=== PATIENT | female | born 1960 | race Caucasian/White ===

== ENCOUNTER → 2017-05-04 | Outpatient (CLI) | payer BC, SELFPAY | PROVIDERS: Visit Provider Family Medicine | DX: E03.9 Hypothyroidism, unspecified (principal); E78.00 Pure hypercholesterolemia, unspecified | CPT/HCPCS: 36415; 80053; 80061; 84436; 84443 ==

== ENCOUNTER → 2017-05-06 | Outpatient (CLI) | payer BC, SELFPAY | PROVIDERS: PCP Family Medicine; Visit Provider Family Medicine | DX: R22.1 Localized swelling, mass and lump, neck (principal); C73 Malignant neoplasm of thyroid gland; R31.9 Hematuria, unspecified; E89.0 Postprocedural hypothyroidism | CPT/HCPCS: 74176; 76536 ==

== ENCOUNTER → 2017-08-12 11:09 | Outpatient (CLI) | payer BC, SELFPAY ==
--- NOTE | 2017-08-12 11:23 | CT_ITS ---
CT abdomen pelvis wo con CLINICAL INDICATION: Hematuria, left flank pain ITS.REASON: ACUTE DIVERTICULITIS ORDERING PHYSICIAN: RAPIT Talavera PATIENT AGE: 56 years COMPARISON: 05/06/2017 TECHNIQUE: Axial images obtained with sagittal and coronal reformats. All CT scans at the facility use one or more dose reduction, viz: automated exposure control; ma/kV adjustment per patient size (including targeted exams where dose is matched to indication; i.e. head); or iterative reconstruction technique. PROCEDURE: Oral Contrast: None IV Contrast: None . FINDINGS: The liver, spleen, adrenal glands, pancreas, gallbladder, and kidneys have an unremarkable unenhanced appearance. No obstructing renal or ureteral calculi. Unremarkable appendix. No intestinal obstruction or free air. There is diverticulosis of the descending and sigmoid colon. No areas of diverticulitis identified.. Prior hysterectomy. No pelvic mass abnormal fluid collection or focal inflammatory change evident. Urinary bladder has an unremarkable appearance Is mild lumbar scoliosis convex left with mild chronic wedging of L2. IMPRESSION: 1. No acute finding. 2. Sigmoid and descending colon diverticulosis. No evidence of diverticulitis 3. No obstructing renal or ureteral calculi
== END ==
PROVIDERS: PCP Physician Assistant; Visit Provider Physician Assistant
DX: K57.92 Diverticulitis of intestine, part unspecified, without perforation or abscess without bleeding (principal)
CPT/HCPCS: 74176

== ENCOUNTER → 2017-08-30 13:51 | Outpatient (POV) | payer BC, SELFPAY | PROVIDERS: Visit Provider Nurse Practitioner Acute Care | DX: Z00.00 Encounter for general adult medical examination without abnormal findings (principal) ==

== ENCOUNTER → 2017-12-23 08:58 | Outpatient (CLI) | payer BC, SELFPAY ==
--- NOTE | 2017-12-23 09:01 | CT_ITS ---
CT lung screening EXAM: CT LUNG LOW DOSE WO CONTRAST HISTORY: 57 year old female with 44 pack-year smoking history, asymptomatic ITS.REASON: H/O NICOTINE DEPENDENCE ORDERING PHYSICIAN: Chris Farley MD PATIENT AGE: 57 years COMPARISON: 10/06/2016 TECHNIQUE: The exam was performed on a GE Light Speed [address] scanner using 2.90 mGy CTDI. A low dose helical CT CHEST was performed on a multi-detector scanner. All CT scans at the facility use one or more dose reduction, viz: automated exposure control, ma/kV adjustment per patient size (including targeted exams where dose is matched to indication, i.e. head), or iterative reconstruction technique. The LDCT was performed in a facility that meets the criteria for the screening program. Data regarding this exam was submitted to ACR which is an approved registry. The order for this exam indicates that it came as a result of a lung cancer screening counseling shard decision-making visit that included all the elements required of such a visit including smoking cessation. The radiologist interpreting this exam meets the CMS criteria for the LDCT lung cancer screening program. The exam is reported using the Lung-RADS classification scale and reported to the ACR registry. NOTE: This study was performed for the specific purposes of lung cancer screening and is not an alternative to diagnostic chest CT. RADIATION DOSE: CTDI vol(CT dose Index-volume) = 2.90mG DLP (Dose Length Product) = 124.28 mGcm FINDINGS: Centrilobular and paraseptal emphysema with scattered fibrotic changes. There are multiple small pulmonary nodules which have developed in both lung bases posteriorly measuring up to 8 mm in both right and left lung bases posteriorly There are some small nodes in the mediastinum measuring up to 1.6 cm in the precarinal region not significantly changed. Small mesenteric nodes are also present. IMPRESSION: 1. Lung RADS Category: 4, suspicious. Numerous small pulmonary nodules have developed in both lung bases posteriorly. This could represent infectious or inflammatory etiology or metastatic disease. This patient have a known primary carcinoma?? 2. Other findings: Centrilobular emphysema and paraseptal emphysema RECOMMENDATIONS: [address] follow-up suggested without and with contrast of the chest. Also suggest correlation with patient's history. Does patient have history of primary?
== END ==
PROVIDERS: Family Provider Family Medicine; PCP Family Medicine; Visit Provider Family Medicine
DX: Z12.2 Encounter for screening for malignant neoplasm of respiratory organs (principal); Z87.891 Personal history of nicotine dependence

== ENCOUNTER → 2018-02-08 10:30 | Outpatient (CLI) | payer BC, SELFPAY ==
--- NOTE | 2018-02-08 10:34 | MM_ITS ---
MM Dig screening mamm BI w/CAD CAD Screening COMPARISON: Analog mammograms 11/22/2009 and digital mammograms with CAD 10/06/2016 INDICATION: There is no personal or family history of breast cancer TECHNIQUE: Standard CC and MLO images were obtained. R2 CAD reviewed. FINDINGS: Moderate somewhat heterogenic fibroglandular densities are seen in the central portions of both breasts. There is a possible belting asymmetric density right breast highlighted by CAD and best seen on the cc projection. Recommend the patient return for spot compression CC view and 90 degree lateral view and ultrasound may be necessary as well. There is a mole marker left breast. There are no suspicious microcalcifications. IMPRESSION: Moderate diffuse breast density with possible developing asymmetric density right breast BI-RADS Category: 0 Need Additional Imaging Evaluation RECOMMENDED FOLLOW-UP: IMM - IMMEDIATE FOLLOW-UP RECOMMENDED (A letter has been sent to the patient regarding results of the study.)
== END ==
PROVIDERS: Family Provider Family Medicine; PCP Family Medicine; Visit Provider Family Medicine
DX: Z12.31 Encounter for screening mammogram for malignant neoplasm of breast (principal)
CPT/HCPCS: 77067

== ENCOUNTER → 2018-03-01 12:52 | Outpatient (CLI) | payer BC, SELFPAY ==
--- NOTE | 2018-03-01 13:00 | MM_ITS ---
MM Dig mamm DX unilat RT CAD, US breast RT complete INDICATION: Follow-up abnormal mammogram ORDERING PHYSICIAN: Chris Farley MD PATIENT AGE: 57 years COMPARISON: 02/08/2018 TECHNIQUE: Problem-solving views and ultrasound of the right breast FINDINGS: There is dense fibroglandular tissue which decreases sensitivity of mammography. There was some residual asymmetric density noted in the superior left breast on the spot compression view. This did appear to somewhat this may on the focal and was not evident on the cc view.. Asymmetry in the medial aspect of the right breast is noted but is unchanged dating back to 10/06/2016 probably related to fibroglandular tissue Right breast ultrasound: No cystic or solid adenopathy is evident. There is echodense fibroglandular tissue noted. Small lymph node is present in the axilla with fatty hilum IMPRESSION: No discrete mass. No malignant mass or malignant appearing microcalcification. Minimal residual asymmetric density in the upper aspect of the right breast and may be related to fibroglandular tissue BI-RADS Category: 3 Probably Benign Finding Short Term Follow-up RECOMMENDED FOLLOW-UP: 6M - 6 MONTH FOLLOW-UP (A letter has been sent to the patient regarding results of the study.)
== END ==
PROVIDERS: Family Provider Family Medicine; PCP Family Medicine; Visit Provider Family Medicine
DX: R92.8 Other abnormal and inconclusive findings on diagnostic imaging of breast (principal)
CPT/HCPCS: 76641; 77065

== ENCOUNTER → 2018-03-31 12:40 | Outpatient (CLI) | payer BC, SELFPAY ==
--- NOTE | 2018-03-31 12:56 | CT_ITS ---
CT chest wo/w con HISTORY: Abnormal screening CT follow-up, pulmonary nodule follow-up, emphysema, tobacco use ITS.REASON: [address] ORDERING PHYSICIAN: Chrsi Farley MD PATIENT AGE: 57 years COMPARISON: None Technique: Axial images obtained without and with contrast. With sagittal and coronal reformats. All CT scans at the facility use one or more dose reduction, viz: automated exposure control, ma/kV adjustment per patient size (including targeted exams where dose is matched to indication, i.e. head), or iterative reconstruction technique. FINDINGS: There are scattered small lymph nodes in the mediastinum without significant change. No evidence of central pulmonary embolus or aortic aneurysm or dissection. Normal heart size. There are paraseptal and centrilobular emphysematous changes. There are some mild fibrotic changes in the right upper lobe. There are mild dependent changes in the lung bases. There is calcified granuloma in the left lower lobe. The previously noted nodular opacities in the lung bases are no longer apparent and may have been due to inflammatory or infectious nodules. The inspiration is somewhat less on today's exam compared to the previous study with dependent changes in the left lung base which could possibly obscure the small underlying nodules. No effusions or infiltrates. No acute bony anomaly. Mild chronic wedging of T12 and T7. IMPRESSION: 1. Previously noted nodular opacities in the lung bases are not readily apparent and may have been infectious or inflammatory in nature. Recommend continued lung cancer screening in December 2018 2. Paraseptal and centrilobular emphysema with COPD
[2018-03-31 13:05] LABS: Blood Urea Nitrogen 20 mg/dL (7-18); Creatinine,Serum 0.92 mg/dL (0.55-1.02); Estimated Glomerular Filt Rate 62 ml/min (>60); GFR (African American) 76 ML/MIN (>60)
== END ==
PROVIDERS: Visit Provider Family Medicine
DX: R93.89 Abnormal findings on diagnostic imaging of other specified body structures (principal); R91.8 Other nonspecific abnormal finding of lung field
CPT/HCPCS: 36415; 71270; 82565; 84520; Q9967

== ENCOUNTER → 2018-07-20 09:51 | Outpatient (CLI) | payer BC, SELFPAY ==
[2018-07-20 11:07] LABS: Basophils % 0.5 % (0.1-2.0); Eosinophils % 0.4 % (0.1-12.0); Hematocrit 38.2 % (37.0-47.0); Hemoglobin 13.1 g/dL (12.2-16.2); Lymphocytes # 3.1 K/mm3 (0.7-4.5); Lymphocytes % 37.5 % (10-50); Mean Corpuscular HGB Conc 34.4 g/dL (31.8-35.4); Mean Corpuscular Hemoglobin 32.9 pg (27.0-31.2); Mean Corpuscular Volume 95.9 fl (81-99); Mean Platelet Volume 8.8 fl (7.4-10.4); Monocytes # 0.4 K/mm3 (0.1-1.0); Monocytes % 4.8 % (1.7-9.3); Neutrophils # 4.7 K/mm3 (1.8-7.8); Neutrophils % 56.7 % (37.0-80.0); Platelet Count 271 K/mm3 (142-424); Red Blood Count 3.98 M/mm3 (4.20-5.40); Red Cell Distribution Width 13.8 % (11.5-17.5); White Blood Count 8.2 K/mm3 (4.8-10.8)
[2018-07-20 11:28] LABS: Alanine Aminotransferase 37 U/L (12-78); Albumin Level 3.5 gm/dL (3.4-5.0); Albumin/Globulin Ratio 1.1 (1.1-1.8); Alkaline Phosphatase 64 U/L (46-116); Anion Gap 12.6 mEq/L (5-15); Aspartate Amino Transferase 19 U/L (15-37); Bilirubin,Total 0.3 mg/dL (0.2-1.0); Blood Urea Nitrogen 15 mg/dL (7-18); Calcium 8.1 mg/dL (8.5-10.1); Carbon Dioxide 28 mmol/L (21.0-32.0); Chloride 105 mmol/L (98-107); Chol/HDL Ratio 4.8 (1-3.5); Cholesterol 197 mg/dL (140-200); Creatinine,Serum 0.84 mg/dL (0.55-1.02); Estimated Glomerular Filt Rate 69 ml/min (>60); GFR (African American) 84 ML/MIN (>60); Globulin 3.2 gm/dl (1.3-3.2); Glucose 87 mg/dL (74-106); HDL Cholesterol 41 mg/dL (29-89); LDL Cholesterol 130 mg/dL (0-130); Potassium 4.6 mmoL/L (3.5-5.1); Sodium 141 mmol/L (136-145); Thyroid Stimulating Hormone 2.05 uIU/ml (0.358-3.740); Total Protein,Serum 6.7 gm/dL (6.4-8.2); Triglycerides 128 mg/dL (30-200); VLDL Cholesterol 26 mg/dL (0-40)
== END ==
PROVIDERS: Visit Provider Family Medicine
DX: E03.9 Hypothyroidism, unspecified (principal); E78.5 Hyperlipidemia, unspecified; M15.9 Polyosteoarthritis, unspecified; I10 Essential (primary) hypertension
CPT/HCPCS: 36415; 80053; 80061; 84443; 85025

== ENCOUNTER → 2019-03-14 10:16 | Outpatient (CLI) | payer BC, SELFPAY ==
--- NOTE | 2019-03-14 11:18 | XR_ITS ---
PROCEDURE: XR HIP RT 2-3V W/PELVIS CLINICAL INDICATION: RT THIGH PAIN COMPARISON: No exams were available for comparison FINDINGS: No fracture or dislocation is evident. No significant degenerative change. No lytic or blastic change. Unremarkable soft tissues. IMPRESSION: Negative right hip Dictated by: Cuong Aquino MD 03/14/2019 17:40 Electronically signed by Cuong Aquino MD in [facility] 03/14/2019 17:40
--- NOTE | 2019-03-14 11:18 | XR_ITS ---
PROCEDURE: XR FEMUR RT 2V CLINICAL INDICATION: RT THIGH PAIN COMPARISON: No exams were available for comparison FINDINGS: No fracture or dislocation. No lytic or blastic change. There is normal mineralization. The joint spaces are well-preserved. No significant degenerative/arthritic changes. No erosive changes evident. Other findings:None. IMPRESSION: Negative right femur Dictated by: Cuong Aquino MD 03/14/2019 17:41 Electronically signed by Cuong Aquino MD in [facility] 03/14/2019 17:41
== END ==
PROVIDERS: PCP Family Medicine; Visit Provider Family Medicine
DX: M79.651 Pain in right thigh (principal)
CPT/HCPCS: 73502; 73552

== ENCOUNTER → 2019-03-21 14:05 | Outpatient (CLI) | payer BC, SELFPAY | PROVIDERS: PCP Family Medicine; Visit Provider Family Medicine | DX: K57.32 Diverticulitis of large intestine without perforation or abscess without bleeding ==

== ENCOUNTER → 2019-03-22 08:03 | Outpatient (CLI) | payer BC, SELFPAY ==
--- NOTE | 2019-03-22 08:05 | CT_ITS ---
PROCEDURE: CT ABDOMEN PELVIS WO CON CLINICAL INDICATION: DIVERTICULITIS, left lower quadrant pain Abdominal pain COMPARISON: [facility] CT abdomen pelvis wo con from 08/12/2017 TECHNIQUE: Axial images obtained with sagittal and coronal reformats. All CT scans at the facility use one or more dose reduction, viz: automated exposure control, ma/kV adjustment per patient size (including targeted exams where dose is matched to indication, i.e. head), or iterative reconstruction technique. FINDINGS: LOWER THORAX: No acute finding ABDOMEN & PELVIS: Fatty liver. The spleen, adrenal glands, pancreas, and gallbladder have an unremarkable appearance. No renal or ureteral calculi. No intestinal obstruction or free air. Unremarkable appendix. There is mild amount of retained colonic feces. There is diverticulosis of the descending and sigmoid colon but no evidence of diverticulitis. There are post hysterectomy changes. There is a tiny umbilical hernia which contains fat. Scattered small nodes are present in the inguinal regions. There is mild upper lumbar curvature convex left and lower lumbar curvature convex right with compressive changes involving the L2 vertebral body which are stable. IMPRESSION: 1. No acute abdominal or pelvic findings. 2. Diverticulosis of the descending and sigmoid colon. No evidence of diverticulitis Dictated by: Cuong Aquino MD 03/23/2019 04:54 Electronically signed by Cuong Aquino MD in [place] 03/23/2019 04:54
== END ==
PROVIDERS: PCP Family Medicine; Visit Provider Family Medicine
DX: K57.32 Diverticulitis of large intestine without perforation or abscess without bleeding (principal)
CPT/HCPCS: 74176

== ENCOUNTER → 2019-12-28 09:50 | Outpatient (CLI) | payer BC, SELFPAY ==
--- NOTE | 2019-12-28 09:56 | XR_ITS ---
PROCEDURE: XR DEXA AXIAL SKELETON CLINICAL HISTORY: POST-MENOPAUSAL COMPARISON: No exams were available for comparison FINDINGS: The right hip BMD is 0.688 with a t-score of -2.1. The left hip BMD is 0.584 with a t-score of -2.4. The lumbar spine BMD is 0.818 with a t-score of -2.1. IMPRESSION: This patient is considered osteopenic according to the World Health Organization criteria. Bone density is between 10 and 25 percent below young normal . Fracture risk is moderate. Treatment is advised. Based on these results of follow-up exam is recommended in 2 years Dictated by: Cuong Aquino MD 12/28/2019 23:54 Cuong Aquino MD in [facility] 12/29/2019 10:14
--- NOTE | 2019-12-28 10:25 | MM_ITS ---
PROCEDURE: MM DIG SCREENING MAMM BI W/CAD Digital Breast Tomosynthesis Included CLINICAL INDICATION: SCREENING There is no personal or family history of breast cancer. COMPARISON: [facility] DIG MAMM-SCREEN STEPH W/CAD from 10/06/2016 MG SCBI MM Dig screening mamm BI w/CAD from 02/08/2018 MG DXRT MM Dig mamm DX unilat RT CAD from 03/01/2018 TECHNIQUE: Standard CC and MLO images and 3D Tomosynthesis was obtained. R2 CAD reviewed. FINDINGS: Moderate diffuse fibroglandular densities are seen throughout both breasts. The findings of bilateral and symmetrical. There is a mole marker left breast. There is no suspicious lesion in either breast and no suspicious microcalcifications. There is small nodes both axilla. IMPRESSION: Fibrofatty parenchyma with no suspicious lesions seen BI-RAD Category: 2 Benign Finding(s) FOLLOW-UP: 1YR 1 Year Follow-up (A letter has been sent to the patient regarding results of the study.) Dictated by: Dr. Isaac Sandhu MD 12/29/2019 13:53 Dr. Isaac Sandhu MD in [place] 12/29/2019 13:53
== END ==
PROVIDERS: PCP Family Medicine; Visit Provider Family Medicine
DX: Z12.31 Encounter for screening mammogram for malignant neoplasm of breast (principal); Z78.0 Asymptomatic menopausal state
CPT/HCPCS: 77063; 77067; 77080

== ENCOUNTER → 2020-09-11 15:56 | Outpatient (CLI) | payer BC, SELFPAY ==
[2020-09-11 17:31] LABS: Blood Urea Nitrogen 20 mg/dl (7-17); Estimated Glomerular Filt Rate 56 ml/min (>60); GFR (African American) 68 ML/MIN (>60)
== END ==
PROVIDERS: Visit Provider Family Medicine
DX: R10.9 Unspecified abdominal pain (principal)
CPT/HCPCS: 36415; 82565; 84520

== ENCOUNTER → 2020-09-12 11:02 | Outpatient (CLI) | payer BC, SELFPAY ==
--- NOTE | 2020-09-12 11:06 | CT_ITS ---
PROCEDURE: CT ABDOMEN PELVIS W CON CLINICAL INDICATION: LT SIDED ABD PAIN Hx of thyroid cancer since 2009 Uterine cancer since 1998 smoker COMPARISON: CT CT ABDOMEN PELVIS WO CON from 03/22/2019 TECHNIQUE: IV Contrast: 75ML Isovue 370 Oral Contrast None Axial images obtained with sagittal and coronal reformats. All CT scans at the facility use one or more dose reduction, viz: automated exposure control, ma/kV adjustment per patient size (including targeted exams where dose is matched to indication, i.e. head), or iterative reconstruction technique. FINDINGS: LOWER THORAX: There is a 6 mm noncalcified nodular density in the right lung base medially not readily apparent on the previous exam. ABDOMEN & PELVIS: Fatty liver. No radiopaque gallstones. The spleen, adrenal glands, and pancreas have an unremarkable appearance. No renal or ureteral calculi. No hydronephrosis. There is a retro aortic left renal vein as a normal variant. No intestinal obstruction or free air. Mild amount of retained colonic feces. Unremarkable appearing appendix. There is colonic diverticulosis. No evidence of diverticulitis. Prior hysterectomy. Minimal ectasia of the distal abdominal aorta and common iliac arteries. There is mild chronic wedging of L2 vertebral body slightly greater compared to the previous exam with loss of height anteriorly of approximately 30 percent. Degenerative changes are present in the lumbar spine. Mild concave deformity superior aspect T12 unchanged. IMPRESSION: 1. No acute abdominal or pelvic findings. 2. New 6 mm right lower lobe pulmonary nodule. Suggest [address] follow-up with contrast. 3. Colonic diverticulosis without diverticulitis. Dictated by: Cuong Aquino MD 09/13/2020 06:52 Cuong Aquino MD in [facility] 09/13/2020 06:52
== END ==
PROVIDERS: PCP Family Medicine; Visit Provider Family Medicine
DX: R10.12 Left upper quadrant pain (principal); R10.32 Left lower quadrant pain
CPT/HCPCS: 74177; Q9967

== ENCOUNTER → 2021-02-07 11:43 | Outpatient (CLI) | payer BC, SELFPAY ==
--- NOTE | 2021-02-07 11:48 | XR_ITS ---
PROCEDURE: XR KNEE LT 3V CLINICAL INDICATION: CHRONIC KNEE PAIN COMPARISON: No exams were available for comparison FINDINGS: No fracture or dislocation. No lytic or blastic change. There is normal mineralization. There is slight decrease in the medial lateral disc space with minimal medial femoral condyle Other findings:None. IMPRESSION: Minimal osteoarthritic changes Dictated by: Cuong Aquino MD 02/07/2021 12:13 Cuong Aquino MD in [facility] 02/07/2021 12:13
== END ==
PROVIDERS: PCP Family Medicine
DX: M25.562 Pain in left knee (principal)
CPT/HCPCS: 73562

== ENCOUNTER → 2021-03-31 09:12 | Outpatient (CLI) | payer BC, SELFPAY ==
[2021-03-31 10:45] LABS: Blood Urea Nitrogen 19 mg/dl (7-17); Estimated Glomerular Filt Rate 85 ml/min (>60); GFR (African American) 103 ML/MIN (>60)
== END ==
PROVIDERS: Visit Provider Family Medicine
DX: R91.1 Solitary pulmonary nodule (principal)
CPT/HCPCS: 36415; 82565; 84520

== ENCOUNTER → 2021-04-02 12:54 | Outpatient (CLI) | payer BC, SELFPAY ==
--- NOTE | 2021-04-02 12:57 | CT_ITS ---
PROCEDURE: CT CHEST WO/W CON CLINCAL INDICATION: LUNG NODULE no COMPARISON: CT LUNGSCREEN CT lung screening from 12/23/[address] chest wo/w con from 03/31/[address] ABDOMEN PELVIS W CON from 09/12/2020 TECHNIQUE: IV Contrast: 75ml Isovue 370 Axial images obtained with sagittal and coronal reformats. All CT scans at the facility use one or more dose reduction, viz: automated exposure control, ma/kV adjustment per patient size (including targeted exams where dose is matched to indication, i.e. head), or iterative reconstruction technique. FINDINGS: HEART AND MEDIASTINAL STRUCTURES: Unremarkable LUNGS AND PLEURAL SPACES: COPD with paraseptal and centrilobular emphysematous changes. Scarring is present in the right upper lobe unchanged. Dependent changes versus fibrotic changes in the lung bases posteriorly. Previously noted nodule in the right lung base medially is no longer apparent. Calcified granuloma is present in the left lower lobe. No suspicious nodules apparent. BONY STRUCTURES: There is minimal wedging T12 and T7 not significantly changed. UPPER ABDOMEN: Fatty liver ADDITIONAL FINDINGS: No other significant abnormalities. IMPRESSION: No suspicious nodules evident. Previously noted nodule in the right lower lobe may parent. COPD with centrilobular and paraseptal emphysema with scattered areas of scarring. Dictated by: Cuong Aquino MD 04/03/2021 10:00 Cuong Aquino MD in [place] 04/03/2021 10:00
== END ==
LOC: RAD 12:54
PROVIDERS: PCP Family Medicine; Visit Provider Family Medicine
DX: R91.1 Solitary pulmonary nodule (principal)
CPT/HCPCS: 71270; Q9967

== ENCOUNTER 2021-07-05 15:59 | Emergency (ER) | payer BC, SELFPAY ==
--- NOTE | 2021-07-05 16:06 | XR_ITS ---
PROCEDURE INFORMATION: Exam: XR Left Foot Exam date and time: 07/05/2021 4:06 PM Age: 60 years old Clinical indication: Left; Patient HX: Pain in foot after a fall 3 days ago TECHNIQUE: Imaging protocol: XR Left foot. Views: 3 or more views. COMPARISON: CR FTL3 FOOT-LT-3 VIEWS 03/31/2016 1:23 PM FINDINGS: Bones/joints: Small plantar calcaneal enthesophyte. No acute fracture or dislocation. Mild degenerative changes of the 1st MTP, manifest by joint space narrowing subchondral sclerosis. Soft tissues: Moderate dorsal forefoot soft tissue swelling. IMPRESSION: 1. No acute fracture or dislocation. 2. Moderate dorsal forefoot soft tissue swelling.
[2021-07-05 16:15] VITALS: BP 141/88; PULSE 82; RESP 18; TEMP 37; O2SAT 98; BMI 29.4
--- NOTE | 2021-07-05 16:35 | HMH.EDUTC ---
[facility] [place] Clinical Impression: Left ankle strain Qualifiers: Encounter type: initial encounter Qualified Code(s): S96.912A - Strain of unspecified muscle and tendon at ankle and foot level, left foot, initial encounter Disposition: Home, Self-Care Condition on Discharge: Good Instructions: DI for Foot Pain Additional Instructions: Weightbearing as tolerated rest Ice with cold pack for 20 minutes remove may repeat for comfort every hour walking boot for support and swelling no less in the shower. Be sure not too tight but not to lose either Elevate with ankle above your heart as much as possible to help reduce swelling and therefore pain Ibuprofen every 6 hours as needed for pain or inflammation. If needs something more you can take Tylenol every 4 hours as needed as long as her primary care has told he was okayed for you to take both. If improving any do not need to follow-up you can bring begin exercising 2-3 weeks after injury. Follow-up immediately if new or worsening symptoms or no noticeable improvement over the next 3-5 days. call ortho Referrals: Chris Farley MD [Primary Care Provider] - Miah Ibarra MD [Staff Physician] - Time of Disposition: 16:40 Medical Decision Making - Lg Inquiry Pt receiving controlled substance: No Orders (Tests/Meds): ORDERS Category Date Time Status XR foot LT min 3V Stat Exams 07/05/21 16:06 [place] [facility] - General Chief complaint: Urgent [facility] Stated complaint: a/o 07/02 fell left foot pain Time Seen by Provider: 07/05/21 16:35 Mode of Arrival: Ambulatory Source of Information: Patient Limitations: No Limitations - History of Present Illness Provider Complaint: 60 yr old female presents for left foot pain. Pt states she fell on and the foot contiunes to hurt and swell - Related Data Home Medications Medication Instructions Recorded Confirmed alprazolam 0.5 mg tablet 0.5 mg PO ONCE 08/05/17 atorvastatin 40 mg tablet 40 mg PO ONCE 08/05/17 bisoprolol 5 1 tab PO ONCE 08/05/17 mg-hydrochlorothiazide 6.25 mg tablet cyclobenzaprine 10 mg tablet 10 mg PO TID 08/05/17 gabapentin 600 mg tablet 600 mg PO TID 08/05/17 levofloxacin 500 mg tablet 500 mg PO Q24H 08/05/17 levothyroxine 137 mcg capsule 137 mcg PO ONCE 08/05/17 metronidazole 500 mg tablet 500 mg PO TID 08/05/17 omeprazole 40 mg capsule,delayed 40 mg PO ONCE 08/05/17 release oxycodone-acetaminophen 10 mg-325 1 tab PO TID tab 08/05/17 mg tablet Allergies Allergy/AdvReac Type Severity Reaction Status Date / Time naproxen Allergy Unknown I-RASH Unverified 05/04/17 14:34 [facility] History - Hepatitis A Screen Attestation statement:: This patient has been screened for Hepatitis A risk factors. I have reviewed the patient's past medical history: Yes Medical History: Reports:: Cancer, Hyperlipidemia, Hypertension, Ulcer Other Medical History: Reports: Arthritis, Thyroid Disease Other Surgeries: Yes: Thyroidectomy Amputation: No Fractures: No - Social History Smoking Status: Current every day smoker Tobacco Type: cigarettes Alcohol Intake: former Substance Use Type: denies use Family Hx:: Cancer, Hyperlipidemia, Diabetes, Heart Attack, Hypertension, Thyroid Disorder, Stroke Comment: arthritis,seizures ROS Obtained: Yes Systems reviewed as appropriate & no additional complaints - Constitutional Constitutional: Reports system reviewed and no additional complaints, except as docu, Denies fever(s) - Eyes Eyes: Reports system reviewed and no additional complaints, except as docu, Denies dry eyes - ENT Ears, Nose, Mouth, and Throat: Reports system reviewed and no additional complaints, except as docu, Denies sore throat - Cardiovascular Cardiovascular: Reports system reviewed and no additional complaints, except as docu, Denies chest pain - Respiratory Respiratory: Reports system reviewed and no additional complaints, except as do
[2021-07-05 16:46] VITALS: BP 141/88; PULSE 82; RESP 18; TEMP 37; O2SAT 98
== END 2021-07-05 16:54 | disposition home or self-care (01) ==
PROVIDERS: Emergency Provider Nurse Practitioner Family; PCP Family Medicine
DX: S96.912A Strain of unspecified muscle and tendon at ankle and foot level, left foot, initial encounter (principal); W01.0XXA Fall on same level from slipping, tripping and stumbling without subsequent striking against object, initial encounter
CPT/HCPCS: 29515; 73630; 99202; G0463

== ENCOUNTER 2022-03-12 11:01 | Day surgery (SDC) | payer BC, SELFPAY ==
[2022-02-23 10:53] VITALS: BMI 30.6
[2022-03-12 11:22] VITALS: BP 176/98; PULSE 95; RESP 18; TEMP 36.1; O2SAT 97
--- NOTE | 2022-03-12 11:39 | P.PN_ITS ---
PFSH PFS Medical History Chronic kidney disease History of back pain History of back problems Hx of chronic arthritis Hx of diverticulitis of colon Surgical History History of hysterectomy Hx of thyroidectomy Family History Other Family history of diabetes mellitus Family history of hypertension Family hx-kidney disease Family hx-stroke Social History Smoking Status: Current every day smoker tobacco type: cigarettes packs per day: 1 pack-years: 45 years smoked: 45 quit status: not considering quitting second hand exposure: No alcohol intake: former substance use type: denies use current occupational status: retired Travel in the last 8 weeks: None household members: spouse housing: house marital status: education level: high school current occupational exposures/hazards: No caffeine: Yes special mark needs: No agree to transfusion: No do you feel safe at home: Yes victim of physical abuse: No victim of emotional abuse: No victim of sexual abuse: No would you like helpful sources: No [facility] Anesthesia Checklist Patient Identification Patient Identification: Arm Band and Verbal (Name & ) Structural Data Admitted From: Home Planned Operative Procedure/s: Colonoscopy Consent for Planned Operative Procedure(s) Verified: Yes Verified Documents: Surgical Consent NPO Status Verified Time NPO: 02:00 Airway Assessment C-Spine Mobility Assessed: Yes TMJ Mobility Assessed: Yes Dentition: Good Dentition Neurological Assessment Level of Consciousness: Awake, Alert and Appropriate Anesthesia Plan Anesthesia Risk discussed: Yes ASA Class: II Anesthesia Type: MAC
[2022-03-12 11:44] VITALS: O2SAT 97
--- NOTE | 2022-03-12 12:03 | HMH.SCOPE ---
Procedure: Date: 03/12/22 Patient Date of :: 1960 Procedure Performed:: Colonoscopy Indications:: Abdominal pain, recurrent diverticulitis Performing Provider:: Mauro Scanlon MD Referring Provider:: Eugenio Farley MD Sedation:: Propofol Procedure:: After placing the patient in the left lateral decubitus position, the colonoscopy was gently inserted into the rectum and under direct visualization advanced to the cecum which was identified by transillumination in the right lower quadrant, identification of the ileocecal valve, appendiceal orifice, and cecal strap. Color, texture, mucosa, and anatomy of the colon were carefully examined with the scope. Findings:: Anal canal: normal Rectum: normal Sigmoid colon: normal without polyps or inflammatory changes, multiple diverticulosis noted without current evidence of diverticulitis Descending colon: normal without polyps or inflammatory changes Splenic flexure: normal Transverse colon: normal without polyps or inflammatory changes Hepatic flexure: normal Ascending colon: normal without polyps or inflammatory changes Cecum: normal Terminal ileum: not visualized Impression: sigmoid diverticulosis without current evidence of acute diverticulitis Recommendations:: Follow up examination in about TEN years or so Consider surgical consultation for sigmoid resection if clinically indicated. Complications:: None Estimated blood obtained (mL): 0
[2022-03-12 12:07] VITALS: BP 130/63; PULSE 75; RESP 14; TEMP 36.2; O2SAT 94
[2022-03-12 12:17] VITALS: BP 132/74; PULSE 74; RESP 16; O2SAT 95
[2022-03-12 12:27] VITALS: BP 133/91; PULSE 77; RESP 18; O2SAT 95
[2022-03-12 12:37] VITALS: BP 143/84; PULSE 77; RESP 18; TEMP 36.2; O2SAT 98
== END 2022-03-12 12:37 | disposition home or self-care (01) ==
PROVIDERS: PCP Family Medicine; Visit Provider Internal Medicine Gastroenterology
PROC: 0DJD8ZZ Inspection of Lower Intestinal Tract, Via Natural or Artificial Opening Endoscopic (ICD-10-PCS; CPT 45378; principal; 2022-03-12 12:00)
DX: K57.30 Diverticulosis of large intestine without perforation or abscess without bleeding (principal); R10.9 Unspecified abdominal pain; Z72.0 Tobacco use; Z79.899 Other long term (current) drug therapy
CPT/HCPCS: 45378

== ENCOUNTER → 2022-05-20 16:50 | Outpatient (CLI) | payer BC, SELFPAY ==
--- NOTE | 2022-05-20 | MM_ITS ---
PROCEDURE INFORMATION: Exam: MG Bilateral Screening 3D Mammography Exam date and time: 05/20/2022 4:44 PM Age: 61 years old Clinical indication: Screening examination TECHNIQUE: Imaging protocol: Bilateral Screening tomosynthesis and 2D mammography including computer-aided detection (CAD) when performed. COMPARISON: 1. MG MM DIG SCREENING MAMM BI W/CAD 12/28/2019 10:16 AM 2. MG DXRT MM Dig mamm DX unilat RT CAD 03/01/2018 1:21 PM FINDINGS: MAMMOGRAPHY: Breast composition: There are scattered areas of fibroglandular density. Mass: None. Architectural distortion: None. Calcifications: No suspicious calcifications. Asymmetric density: None. Skin thickening: None. Axillary adenopathy: None. IMPRESSION: No mammographic evidence of malignancy. Annual screening is recommended unless otherwise clinically indicated. ASSESSMENT: BI-RADS Category 1: Negative
== END ==
PROVIDERS: PCP Family Medicine; Visit Provider Family Medicine
DX: Z12.31 Encounter for screening mammogram for malignant neoplasm of breast (principal)
CPT/HCPCS: 77063; 77067

== ENCOUNTER 2023-10-22 06:49 | Outpatient (CLI) | payer BC, SELFPAY ==
[2023-10-22 15:07] LABS: Alanine Aminotransferase 22 U/L (12-78); Albumin/Globulin Ratio 1.5 (1.1-1.8); Alkaline Phosphatase 62 U/L (38-126); Anion Gap 10.6 mEq/L (5-15); Aspartate Amino Transferase 29 U/L (14-36); Bilirubin,Total 0.4 mg/dl (0.2-1.3); Blood Urea Nitrogen 17 mg/dl (7-17); Carbon Dioxide 33 mmol/L (22.0-30.0); Chloride 100 mmol/L (98-107); Chol/HDL Ratio 3.9 (1-3.5); Cholesterol 163 mg/dl (140-200); Estimated Glomerular Filt Rate 63 ml/min (>60); GFR (African American) 76 ML/MIN (>60); Globulin 2.7 g/dL (1.3-3.2); Glucose 91 mg/dl (74-100); HDL Cholesterol 42 mg/dl (40-60); Potassium 3.6 mmoL/L (3.5-5.1); Sodium 140 mmol/L (136-145); Total Protein,Serum 6.7 g/dl (6.3-8.2); Triglycerides 125 mg/dl (30-150); VLDL Cholesterol 25 mg/dL (0-40)
[2023-10-22 15:17] LABS: Direct LDL Cholesterol 95.82 mg/dL (100-129)
[2023-10-22 15:37] LABS: Thyroid Stimulating Hormone 2.11 uIU/mL (0.465-4.68)
== END 2023-10-22 23:59 | disposition home or self-care (01) ==
PROVIDERS: PCP Family Medicine; Visit Provider Family Medicine
DX: E78.5 Hyperlipidemia, unspecified (principal); E03.9 Hypothyroidism, unspecified; I10 Essential (primary) hypertension; F17.210 Nicotine dependence, cigarettes, uncomplicated
CPT/HCPCS: 36415; 80053; 80061; 84443

== ENCOUNTER 2023-10-22 13:12 | Outpatient (CLI) | payer BC, SELFPAY ==
--- NOTE | 2023-10-22 13:43 | MM_ITS ---
PROCEDURE INFORMATION: Exam: MG Bilateral Screening 3D Mammography Exam date and time: 10/22/2023 1:27 PM Age: 62 years old Clinical indication: Screening examination TECHNIQUE: Imaging protocol: Bilateral Screening tomosynthesis and 2D mammography including computer-aided detection (CAD) when performed. COMPARISON: 1. MG MM DIG SCREENING MAMM BI W/CAD 05/20/2022 4:44 PM 2. MG MM DIG SCREENING MAMM BI W/CAD 12/28/2019 10:16 AM FINDINGS: MAMMOGRAPHY: Breast composition: There are scattered areas of fibroglandular density. Mass: None. Architectural distortion: None. Calcifications: No suspicious calcifications. Asymmetric density: None. Skin thickening: None. Axillary adenopathy: None. IMPRESSION: No mammographic evidence of malignancy. Annual screening is recommended unless otherwise clinically indicated. ASSESSMENT: BI-RADS Category 1: Negative
== END 2023-10-22 23:59 | disposition home or self-care (01) ==
PROVIDERS: PCP Family Medicine; Visit Provider Family Medicine
DX: Z12.31 Encounter for screening mammogram for malignant neoplasm of breast (principal)
CPT/HCPCS: 77063; 77067

== ENCOUNTER 2023-11-12 10:23 | Outpatient (CLI) | payer BC, SELFPAY ==
--- NOTE | 2023-11-12 10:28 | CT_ITS ---
FINAL REPORT TECHNIQUE: Axial CT images of the chest were obtained without contrast. Low-dose protocol was utilized. This study was performed with techniques to keep radiation doses as low as reasonably achievable (ALARA). Individualized dose reduction techniques using automated exposure control or adjustment of mA and/or kV according to the patient's size were employed. CLINICAL HISTORY: H/O TOBACCO USE CURRENT SMOKER 1PPD X48 YEARS COMPARISON: CT chest 04/02/2021 report only FINDINGS: CT CHEST WITHOUT, LOW DOSE SCREENING CT Di Vol: 2.90 mGy DLP: 97.95 mGy*cm There is mild precarinal adenopathy measuring 16 x 10 mm. There are no other sites of adenopathy. The heart size is normal. There is no pleural or pericardial effusion. The lung windows show mild scarring in the lateral portion of the right upper lobe. No suspicious nodule or mass identified.. Limited images of the upper abdomen demonstrate no acute findings. IMPRESSION: No suspicious nodules. Mild nonspecific adenopathy. LR Category 1S: Six-month follow-up low-dose CT for adenopathy recommended. Reviewed, Interpreted and Dictated by Mitchell Myers MD Transcribed by Jazmine Lopez Authenticated and [facility]
== END 2023-11-12 23:59 | disposition home or self-care (01) ==
LOC: RAD 10:24
PROVIDERS: PCP Family Medicine; Visit Provider Family Medicine
DX: Z72.0 Tobacco use (principal)
CPT/HCPCS: 71271